=== PATIENT | male | born 1990 | race Two or more races ===

== ENCOUNTER 2020-03-26 15:24 | Emergency (ER) | payer MEDICAID ==
[~2020-03-26] VITALS: Ht 182.9 cm; Wt 85.0 kg
[2020-03-26 15:31] VITALS: BP 153/104
[2020-03-26] MEDS ORDERED: KETO15CR2 TOP (15:57)
== END 2020-03-26 16:08 | disposition home or self-care (01) ==
LOC: ER 15:25
DX: B35.9 Dermatophytosis, unspecified (principal); F41.9 Anxiety disorder, unspecified; Z79.899 Other long term (current) drug therapy
CPT/HCPCS: 99282